=== PATIENT | male | born 1980 | race Caucasian/White ===

== ENCOUNTER 2021-05-15 23:15 | Emergency (ER) | payer MEDICAID ==
[~2021-05-15] VITALS: Ht 177.8 cm; Wt 104.3 kg
[2021-05-15 23:36] VITALS: BP 127/83
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
--- NOTE | 2021-05-16 00:20 | NUR ---
STRATEGIC ADVISOR AT PT'S BEDSIDE
[2021-05-16] MEDS ORDERED: NAPR-1192 PO (01:29)
== END 2021-05-16 01:35 | disposition home or self-care (01) ==
LOC: ER 23:19
DX: M25.561 Pain in right knee (principal); Z79.1 Long term (current) use of non-steroidal anti-inflammatories (NSAID); V43.92XA Unspecified car occupant injured in collision with other type car in traffic accident, initial encounter; Y93.89 Activity, other specified; Y92.89 Other specified places as the place of occurrence of the external cause; Y99.8 Other external cause status
CPT/HCPCS: 73502; 73552; 73564-TC; 73590-TC